=== PATIENT | female | born 1980 | race Two or more races ===

== ENCOUNTER 2024-09-25 08:48 | Emergency (ER) | payer MEDICAID, SELFPAY ==
[2024-09-25 09:13] VITALS: BP 155/96; PULSE 89; RESP 19; TEMP 36.8; O2SAT 94; BMI 43.0
--- NOTE | 2024-09-25 09:39 | XR_ITS ---
Examination: PA lateral chest 2 views TECHNIQUE: Upright PA lateral chest 2 views Exam date and time: 09/25/2024 1008 hours INDICATIONS: Coughing beginning one month ago. FINDINGS: Normal heart size. Lungs are clear. The osseous structures are intact IMPRESSION: No active disease
[2024-09-25] MEDS: predniSONE 20 MG TABLET 40 MG PO (10:01)
--- NOTE | 2024-09-25 10:04 | PD.EDURI ---
Upper Respiratory Inf. RME/HPI General Chief Complaint: Flu Like Symptoms Stated Complaint: Cough X 1.5 months Time Seen by Provider: 09/25/24 09:04 Source: patient Arrival date/time: 09/25/24 08:48 This is a 44-year-old female s reports she was had intermittent cough for the last 6 weeks. Reports she was treated for pneumonia for 10 days. Denies having a recent x-ray. States has not been able to follow-up with her PCP due to insurance issues. Denies dyspnea, no fever, no lethargy decreased appetite. Mode of arrival: ambulatory Related Data Home Medications ?Medication ?Instructions ?Recorded ?Confirmed metformin 500 mg tablet 500 tab PO BID 03/19/22 03/19/22 Previous Rx's ?Medication ?Instructions ?Recorded cephalexin 500 mg capsule 500 mg PO BID #14 caps 03/21/22 clindamycin HCl 150 mg capsule 150 mg PO TID #21 caps 03/21/22 azithromycin 250 mg tablet 250 mg PO QDAY 5 days #6 tabs 09/25/24 fluticasone propionate 220 2 puff inhalation BID #12 grams 09/25/24 mcg/actuation HFA aerosol inhaler loratadine 10 mg capsule 10 mg PO QDAY #30 caps 09/25/24 prednisone 20 mg tablet 40 mg (2 x 20 mg) PO QDAY 3 days 09/25/24 #6 tabs promethazine-DM 6.25 mg-15 mg/5 mL 5 ml PO Q6H PRN cough #118 mL 09/25/24 oral syrup Allergies Allergy/AdvReac Type Severity Reaction Status Date / Time No Known Allergies Allergy Verified 03/19/22 13:52 Review of Systems Review of Systems Systems Reviewed: All systems reviewed, normal except as documented Narrative Review of Systems: Gen: No fever, no chills, no weight loss EYES: No discharge, no visual changes, no pain HEENT: No ear pain, no congestion, no sore throat PULM: No shortness of breath, + cough, no congestion CV: No chest pain, no dyspnea on exertion, no palpitations GI: No nausea, no vomiting, no diarrhea, no pain, no constipation : No frequency, no urgency, no dysuria Musc/skel: No joint pain, no back pain Skin: No rash Psyc: No hallucinations, no depression Heme/Lymph: No easy bleeding or bruising tendencies Neuro: No weakness, no headache ED Exam Narrative Physical exam: General: Sittiing in Exam table in no acute distress, answering questions appropriately HENT: normocephalic, atraumatic, EOMI, PERRLA, moist mucous membranes Chest: chest wall is nontender Cardiac: regular rate and rhythm, normal S1 and S2, no murmurs, rubs, or gallops, capillary refill ?2 seconds Pulmonary: clear to auscultation bilaterally, no wheezing, crackles, + upper rhonchi Abdominal: active bowel sounds, soft, nontender, nondistended Neuro: A&OX3, CN II-XII intact, sensation grossly intact bilaterally in UE and LE. Skin: no rashes, no ecchymosis Ext: no lower extremity edema Course Quality Measures none Orders Category Date Time Status XR chest 2V Stat Exams 09/25/24 09:39 Completed Albuterol/Ipratr Rt Court [Duoneb Rt Court] Med 09/25/24 09:39 Discontinued 3 ml INH X1 ONE predniSONE Med 09/25/24 09:39 Discontinued 40 mg PO X1 ONE Vital Signs Vital signs: Vital Signs Temperature 98.3 F 09/25/24 09:13 Pulse Rate 89 09/25/24 09:13 Respiratory Rate 19 09/25/24 09:13 Blood Pressure 155/96 H 09/25/24 09:13 Pulse Oximetry (%) 94 L 09/25/24 09:13 Oxygen Delivery Method Room Air 09/25/24 09:13 Upper Respiratory Infection MDM Narrative MDM Narrative:: 44-year-old female in the emergency department with complaints of intermittent cough for 6 weeks. Patient does report she was treated with antibiotics with no significant improvement. Has not had an x-ray patient is requesting an x-ray. Advised will order DuoNebs, steroids, and 1 chest x-ray two-view. Clinical exam no respiratory distress. Patient data External records reviewed:: [facility] previous records Clinical information provided by:: patient Social determinants that could affect healthcare access:: none Patient has the following chronic illnesses:: None How is presenting disease/condition affected by chronic disease/condition?: no chronic disease Evaluation data The following diagnostics were reviewed and interpreted by me:: radiology exam(s) Lab and/or radiology exams considered but not ordered:: Yes Interpretation Summary: Chest x-ray Examination: PA lateral chest 2 views TECHNIQUE: Upright PA lateral chest 2 views Exam date and time: 09/25/2024 1008 hours INDICATIONS: Coughing beginning one month ago. FINDINGS: Normal heart size. Lungs are clear. The osseous structures are intact IMPRESSION: No active disease Medications / Prescriptions Medications or Prescriptions considered but not ordered:: No Medication administrations:: Medication Administration History Discontinued Medications Albuterol/Ipratropium (Albuterol/Ipratropium (Duoneb) Rt Court 3 Ml Nebu) 3 ml INH X1 ONE Stop: 09/25/24 09:40 Last Admin: 09/25/24 10:18 Dose: 3 ml Documented By: GIGI Prednisone (Prednisone 20 Mg Tablet) 40 mg PO X1 ONE Stop: 09/25/24 09:40 Last Admin: 09/25/24 10:01 Dose: 40 mg Documented By: DO All medications administered and effective Consultations Consultation(s) initiated? (list below): No Diagnosis Upper Respiratory Differential Diagnosis: upper respiratory infection, viral infection, bronchitis, influenza and pharyngitis Most likely diagnosis given after review of the tests above:: Most likely bronchitis Admission Indicated Admission indicated?: not indicated Admission Request Was there a request for admission?: No Disposition Plan Disposition Plan: Discharge Discharge Attestation Discharge Attestation: The patient and all family members were given an opportunity to ask questions and understood the discharge instructions. Discharge instructions specifically effects, indications for sooner follow up or return to the emergency department, and the expected course of current diagnosis. Patient condition: Stable Discharge Plan Plan Patient Disposition: HOME (Self Care) Prescriptions/Referrals Prescriptions/Med Rec: New prednisone 20 mg tablet 40 mg PO QDAY 3 Days Qty: 6 0RF fluticasone propionate 220 mcg/actuation HFA aerosol inhaler 2 puff inhalation BID Qty: 12 0RF azithromycin 250 mg tablet 250 mg PO QDAY 5 Days Qty: 6 0RF Rx Instructions: 500 mg p.o. day 1, 250 mg p.o. daily for 4 days promethazine-DM 6.25-15 mg/5 mL syrup 5 ml PO Q6H PRN (Reason: cough) Qty: 118 0RF loratadine 10 mg capsule 10 mg PO QDAY Qty: 30 0RF No Action metformin 500 mg tablet 500 tab PO BID Patient Comments: take 1 tablet by mouth twice a day with meals clindamycin HCl 150 mg capsule 150 mg PO TID Qty: 21 0RF cephalexin 500 mg capsule 500 mg PO BID Qty: 14 0RF Referrals: Estefany Campbell FNP [Primary Care Provider] - In 1 week Problem List Clinical Impression: Bronchitis Patient/Caregiver Discharge Instructions Discharge Activity: activity as tolerated Education Materials: ED Bronchitis with Wheezing (Adult) Additional Instructions: - Parece que tienes bronquitis. -Te envi? un par de medicamentos que te ayudar?n con tus s?ntomas. Camejo radiograf?a de t?rax es completamente negativa para neumon?a o infiltrados. Comience a howard un medicamento para la alergia, contin?e con el jarabe para la tos, comience a howard esteroides que le ayudar?n con la inflamaci?n. Te envi? un nuevo inhalador de esteroides que te ayudar? con la tos. Enju?guese la boca despu?s de camejo uso. Seguimiento con camejo m?dico de cabecera Regrese al departamento de emergencias si los s?ntomas empeoran y cambian de condici?n. - It appears that you have bronchitis. -I did send you a couple medications that will help with your symptoms. Your chest x-ray is completely negative for pneumonia or infiltrates. Start an allergy medication continue to cough syrup, start your steroids that will help with inflammation I sent you a new steroid inhaler that will help with your cough. Please rinse your mouth after use. Follow-up with your primary doctor Return to the emergency department is any worsening symptoms change in condition. Print Language: Indonesian Stand Alone Forms: Mell Award Info., Work/School Release, Patient Portal Info Letter FRITZ/CELSO Supervising Physician FRITZ/CELSO Supervising Physician: dr. Velarde
[2024-09-25 10:18] VITALS: PULSE 83; RESP 18; O2SAT 98
[2024-09-25] MEDS: ALBUTEROL/IPRATROPIUM (Duoneb) RT SOL 3 ML NEBU INH (10:18)
== END 2024-09-25 12:21 | disposition home or self-care (01) ==
PROVIDERS: Emergency Provider Emergency Medicine; PCP Registered Nurse Community Health
DX: J40 Bronchitis, not specified as acute or chronic (principal)
CPT/HCPCS: 71046; 94640; 99283; A9270; J7512

== ENCOUNTER → 2025-01-08 | Outpatient (CLI) | payer SELFPAY ==
--- NOTE | 2025-01-08 10:45 | XR_ITS ---
Examination: Screening digital mammography, bilateral Computer aided detection 3-D breast Tomosynthesis, bilateral Date and time of exam: January 08, 2025 1026 hours No priors Indication: Screening Technique: Nonmagnified MLO, CC views of the breasts to been obtained, reconstructed from 3-D Tomosynthesis images. R2 computer aided detection program utilized for evaluation of suspicious masses and/or abnormal calcifications. 3-D Tomosynthesis images obtained. Findings: The breasts are heterogeneously dense, which may obscure small masses 6 mm nodule upper outer left breast posterior depth 11 mm circumscribed nodule inner left breast 8.1 cm from the nipple Impression: BI-RADS Category 0: Incomplete: Need additional imaging evaluation Left breast nodules as above, recommend follow-up spot tomographic views both outer and inner quadrant left breast as well as upper left breast on the MLO view as well as bilateral breast sonography to complete workup
== END | disposition home or self-care (01) ==
PROVIDERS: PCP Registered Nurse Community Health; Referring Provider Registered Nurse Community Health; Visit Provider Registered Nurse Community Health
DX: Z12.31 Encounter for screening mammogram for malignant neoplasm of breast (principal); N63.21 Unspecified lump in the left breast, upper outer quadrant; N63.20 Unspecified lump in the left breast, unspecified quadrant
CPT/HCPCS: 77063; 77067